=== PATIENT | male | born 1940 | race African-American/Black ===

== ENCOUNTER → 2016-06-12 | Outpatient (CLI) | payer MEDICARE ==
[2016-06-12 13:24] LABS: HEMATOCRIT 36.2 % (37.9-51.0); HEMOGLOBIN 11.6 g/dL (13.5-17.0); HGB HCT DIFFERENCE -1.4; MEAN CORPUSCULAR HGB CONC 32.1 g/dL (32.0-36.0); MEAN CORPUSCULAR VOLUME 93 fl (80-97); RED BLOOD COUNT 3.87 10^6/uL (4.35-5.55); RED CELL DISTRIBUTION WIDTH 14.9 % (11.5-14.0); WHITE BLOOD COUNT 4.4 10^3/uL (4.0-10.5)
[2016-06-12 13:30] LABS: APPEARANCE,URINE CLEAR; BILIRUBIN,URINE NEGATIVE (NEGATIVE); GLUCOSE, URINE NEGATIVE (NEGATIVE); KETONES,URINE NEGATIVE (NEGATIVE); LEUKOCYTE ESTERASE,URINE NEGATIVE (NEGATIVE); NITRITE,URINE NEGATIVE (NEGATIVE); PROTEIN,URINE 30 mg/dL (NEGATIVE); URINE SPECIFIC GRAVITY 1.015; UROBILINOGEN,URINE NEGATIVE mg/dL (<2.0)
[2016-06-12 13:53] LABS: ANION GAP 12 (5-19); BLOOD UREA NITROGEN 30 mg/dL (7-20); CALCIUM 9.2 mg/dL (8.4-10.2); CARBON DIOXIDE 22 mmol/L (22-30); CHLORIDE 111 mmol/L (98-107); CREATININE RESULT 1.47 mg/dL (0.52-1.25); GLUCOSE 191 mg/dL (75-110); POTASSIUM 4.2 mmol/L (3.6-5.0); SODIUM 144.9 mmol/L (137-145)
== END ==
LOC: OD 12:01
PROVIDERS: ATTEND Internal Medicine Nephrology
DX: I12.9 Hypertensive chronic kidney disease with stage 1 through stage 4 chronic kidney disease, or unspecified chronic kidney disease (principal); N18.3 Chronic kidney disease, stage 3 (moderate); E11.9 Type 2 diabetes mellitus without complications; D64.1 Secondary sideroblastic anemia due to disease
CPT/HCPCS: 36415; 80048; 81001; 85027

== ENCOUNTER 2016-08-11 09:43 | Emergency (ER) | payer OTHER, MEDICARE ==
[2016-08-11] MEDS ORDERED: OXYCODONE-ACETAMINOPHEN 5-325 MG TABLET PO ONE (10:05)
[2016-08-11] MEDS ORDERED: ONDANSETRON 4 MG TAB.RAPDIS PO ONE (10:05)
--- NOTE | 2016-08-11 10:05 | ER Document Report ---
ED GI/ - General Mode of Arrival: Ambulatory Information source: Patient TRAVEL OUTSIDE OF THE [place] IN LAST 30 DAYS: No - HPI Patient complains to provider of: Abdominal pain Onset: Other - see HPI note Similar symptoms previously: No Recently seen / treated by doctor: No <NIC PEREZ - Last Filed: 08/11/16 11:59> <LINDSAY MOORE - Last Filed: 08/11/16 12:02> - General Chief Complaint: Abdominal Pain Stated Complaint: PAIN IN SIDE Notes: Patient is a 75-year-old male presenting to the emergency department for right- sided abdominal pain. Patient states that he woke up yesterday with this pain and it has been waxing and waning ever since. Patient states he feels like it radiates into his back sometimes. Patient states that he was sent over from the [place] [facility] this morning. Patient states that he has some dysuria, but it is chronic due to a large prostate. Patient still has his gallbladder and his appendix. Patient states she has a cough which also may be chronic. Patient states his diet does not affect his abdominal pain. Patient denies any nausea, vomiting or diarrhea. Patient's primary care physician is Dr. Fitzpatrick. Patient has a history diabetes mellitus and hypertension. Patient states that he drove here, but that he can have a family member or friend, became up if we give him certain medications that prohibit him from driving. Patient has no known allergies. (NIC PEREZ) - Related Data Allergies/Adverse Reactions: No Known Allergies Allergy (Unverified 08/11/16 09:47) Past Medical History - General Information source: Patient - Social History Smoking Status: Unknown if Ever Smoked Family History: None Patient has suicidal ideation: No Patient has homicidal ideation: No - Past Medical History Cardiac Medical History: Reports: Hx Hypercholesterolemia, Hx Hypertension Pulmonary Medical History: Reports: Hx Asthma Neurological Medical History: Reports: Hx Seizures - Pediatric GI Medical History: Reports: Hx Hiatal Hernia Musculoskeltal Medical History: Reports Hx Arthritis Psychiatric Medical History: Reports: Hx Depression Past Surgical History: Reports: Hx Bowel Surgery - hernia repair - Immunizations Hx Diphtheria, Pertussis, Tetanus Vaccination: Yes Hx Pneumococcal Vaccination: 01/14/11 <NIC PEREZ - Last Filed: 08/11/16 11:59> Review of Systems - Review of Systems Constitutional: No symptoms reported EENT: No symptoms reported Cardiovascular: No symptoms reported Respiratory: See HPI, Cough Gastrointestinal: See HPI, Abdominal pain. denies: Diarrhea, Nausea, Vomiting Genitourinary: See HPI, Dysuria Male Genitourinary: No symptoms reported Musculoskeletal: No symptoms reported Skin: No symptoms reported Hematologic/Lymphatic: No symptoms reported Neurological/Psychological: No symptoms reported -: Yes All other systems reviewed and negative <NIC PEREZ - Last Filed: 08/11/16 11:59> Physical Exam - Vital signs Interpretation: Normal - General General appearance: Appears well, Alert In distress: Mild - HEENT Head: Normocephalic, Atraumatic Eyes: Normal Pupils: PERRL Mucous membranes: Moist - Respiratory Respiratory status: No respiratory distress Chest status: Nontender Breath sounds: Normal Chest palpation: Normal - Cardiovascular Rhythm: Regular Heart sounds: Normal auscultation Murmur: No - Abdominal Inspection: Normal Distension: No distension Tenderness: Tender - Right upper quadrant pain with inspiratory pause Organomegaly: No organomegaly - Back Back: Normal, Nontender - Extremities General upper extremity: Normal inspection, Normal ROM, Normal strength General lower extremity: Normal inspection, Normal ROM, Normal strength - Neurological Neuro grossly intact: Yes Cognition: Normal Orientation: AAOx4 [place] Coma Scale Eye Opening: Spontaneous [place] Coma Scale Verbal: Oriented [place] Coma Scale Motor: Obeys Commands [place] Coma Scale Total: 15 Speech: Normal Sensory: Normal - Psychological Associated symptoms: Normal affect, Normal mood - Skin Skin Temperature: Warm Skin Moisture: Dry <NIC PEREZ - Last Filed: 08/11/16 11:59> Course - Laboratory Result Diagrams: 08/11/16 10:17 08/11/16 10:17 <NIC PEREZ - Last Filed: 08/11/16 11:59> - Laboratory Result Diagrams: 08/11/16 10:17 08/11/16 10:17 <LINDSAY MOORE - Last Filed: 08/11/16 12:02> - Re-evaluation Re-evalutation: 08/11/16 10:06 Patient presents emergency department with a chief complaint of right upper quadrant pain that started yesterday and has been intermittent ever since. He called the [facility] told to come here for evaluation. He denies any nausea vomiting diarrhea fevers chills or change in appetite. He said the pain will occasionally go into his back area denies any fevers chills cough upper restrain illness shortness of breath chest pain or pressure. He says he hasn't a large prostate but hasn't had any new problems with burning with urination or blood in the urine. He denies any lower abdominal tenderness testicular tenderness. On exam he is well-appearing nontoxic in no acute distress afebrile with stable vital signs. He's got right upper quadrant abdominal tenderness with inspiratory pause. no acute guarding rebound rigidity. going to get labs, gallbladder ultrasound, pain treated and nausea control further assessment and evaluation 08/11/16 10:14 08/11/16 11:56 Patient reassessed at bedside pain is resolved in the right upper quadrant serial abdominal examinations no tenderness guarding rebound rigidity no right lower quadrant or lower abdominal pain with palpation normal white count elevation negative acute labs ultrasound shows a renal cyst which I talked him about is not Causing any discomfort. I gave him the option to go ahead and do a IV and oral CT scan right now he says that he wants to go home without that right now talked to her about the renal insufficiency and the contrast given an option to do that or to follow primary care physician on Sunday. He wants to go home he has pain medication home he wants to take that says he doesn't need any additional nausea medication and follow up with his primary care physician in 12 -24 hours. Told him to return immediately for increasing worsening or new symptoms. No acute clinical concerns at this point for aneurysm dissection or acute appendicitis although detailed discussion on immediate reasons for ED return sooner If he is unable to get an appointment with his doctor in 12-24 hours he is to return to the emergency department in 12-24 hours for recheck reevaluation and reassessment sooner for increasing symptoms an erythematous discharge instructions. 08/11/16 11:58 (LINDSAY MOORE) - Vital Signs Vital signs: Temp Pulse Resp BP Pulse Ox 70 18 112/66 93 08/11/16 09:47 08/11/16 09:47 08/11/16 09:47 08/11/16 09:47 - Laboratory Laboratory results interpreted by me: 08/11/16 08/11/16 08/11/16 10:17 10:17 10:17 RBC 4.26 L Hgb 13.0 L Eosinophils % 8.1 H Sodium 145.6 H BUN 23 H Creatinine 1.35 H Est GFR (Non-Af Amer) 52 L Urine Ascorbic Acid 40 H Discharge <NIC PEREZ - Last Filed: 08/11/16 11:59> <LINDSAY MOORE - Last Filed: 08/11/16 12:02> - Discharge Clinical Impression: abdominal pain Condition: Stable Disposition: HOME, SELF-CARE Instructions: Abdominal Pain ([facility]) Additional Instructions: Abdominal Pain There are many causes of abdominal pain. Pain can mean a serious problem requiring surgery (such as appendicitis). It can also be an innocent problem that goes away on its own (such as a viral infection). Often, time must pass to determine the cause of pain. The physician does not feel that hospitalization is necessary, at present. Things may change within the next 24 hours. Call the doctor or come back for re- examination if any problems occur, such as: (1) Pain that becomes more severe, steady, or becomes concentrated in one specific area. Also, pain that is more severe with movement or coughing. (2) Vomiting that persists or becomes more frequent. (3) Blood in the vomitus, urine, or bowel movements. Blood in the stool may have a tarry or black appearance. (4) Shaking chills or fever greater than 100 degrees F. (5) The abdomen becomes more distended or swollen. (6) Bowel movements cease. (7) Failure to improve as expected. Follow-up with your doctor for recheck and reevaluation in 12-24 hours if you are unable to follow up or symptoms worsen return immediately to the emergency department for recheck and reevaluation in 12-24 hours. Scribe Attestation: 08/11/16 10:07 I personally performed the services described in the documentation reviewed the documentation recorded by my scribe in my presence and it accurately and completely records my words and actions (LINDSAY MOORE) Scribe Documentation - Scribe Written by Caleb:: Nic Perez 08/11/16 10:20 acting as scribe for :: Wilfredo <NIC PEREZ - Last Filed: 08/11/16 11:59>
[2016-08-11 10:57] LABS: ABSOLUTE BASOPHILS # (AUTO) 0.1 10^3/uL (0.0-0.2); ABSOLUTE EOSINOPHILS # (AUTO) 0.4 10^3/uL (0.0-0.6); ABSOLUTE LYMPHOCYTES (AUTO) 1.7 10^3/uL (0.5-4.7); ABSOLUTE MONOCYTES (AUTO) 0.6 10^3/uL (0.1-1.4); ABSOLUTE NEUT (AUTO) 2.7 10^3/uL (1.7-8.2); BASOPHILS % (AUTO) 0.9 % (0-2); EOSINOPHILS % (AUTO) 8.1 % (0-6); HEMATOCRIT 40.1 % (37.9-51.0); HGB HCT DIFFERENCE -1.1; LYMPHOCYTES % (AUTO) 30.8 % (13-45); MEAN CORPUSCULAR HEMOGLOBIN 30.6 pg (27.0-33.4); MEAN CORPUSCULAR HGB CONC 32.5 g/dL (32.0-36.0); MEAN CORPUSCULAR VOLUME 94 fl (80-97); MONOCYTES % (AUTO) 11.6 % (3-13); RED BLOOD COUNT 4.26 10^6/uL (4.35-5.55); RED CELL DISTRIBUTION WIDTH 13.9 % (11.5-14.0); SEGMENTED NEUTROPHILS % (AUTO) 48.6 % (42-78); WHITE BLOOD COUNT 5.5 10^3/uL (4.0-10.5)
[2016-08-11 11:12] LABS: ALANINE AMINOTRANSFERASE 23 U/L (21-72); ALBUMIN 4.4 g/dL (3.5-5.0); ALKALINE PHOSPHATASE 74 U/L (38-126); ANION GAP 15 (5-19); ASPARTATE AMINO TRANSFERASE 25 U/L (17-59); BILIRUBIN,DIRECT 0.3 mg/dL (0.0-0.4); BLOOD UREA NITROGEN 23 mg/dL (7-20); CALCIUM 9.5 mg/dL (8.4-10.2); CARBON DIOXIDE 26 mmol/L (22-30); CHLORIDE 105 mmol/L (98-107); CREATININE RESULT 1.35 mg/dL (0.52-1.25); GLUCOSE 104 mg/dL (75-110); POTASSIUM 4.7 mmol/L (3.6-5.0); SODIUM 145.6 mmol/L (137-145); TOTAL PROTEIN 7.7 g/dL (6.3-8.2)
[2016-08-11 11:17] LABS: APPEARANCE,URINE CLEAR; BILIRUBIN,URINE NEGATIVE (NEGATIVE); GLUCOSE, URINE NEGATIVE (NEGATIVE); KETONES,URINE NEGATIVE (NEGATIVE); LEUKOCYTE ESTERASE,URINE NEGATIVE (NEGATIVE); NITRITE,URINE NEGATIVE (NEGATIVE); PROTEIN,URINE NEGATIVE (NEGATIVE); URINE SPECIFIC GRAVITY 1.011; UROBILINOGEN,URINE NEGATIVE mg/dL (<2.0)
[2016-08-11 12:17] VITALS: BP 119/66
== END 2016-08-11 12:00 | disposition home or self-care (01) ==
LOC: ER 09:43
DX: R10.11 Right upper quadrant pain (principal); N20.0 Calculus of kidney; N40.0 Benign prostatic hyperplasia without lower urinary tract symptoms; R05 Cough; I10 Essential (primary) hypertension; E11.9 Type 2 diabetes mellitus without complications; J45.909 Unspecified asthma, uncomplicated
CPT/HCPCS: 99284; 36415; 83690; 85025; 80053; 81001; 76705; S0119

== ENCOUNTER → 2016-09-18 | Outpatient (CLI) | payer MEDICARE, OTHER ==
--- NOTE | 2016-09-18 14:33 | RADIOLOGY REPORT (SQ) ---
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 Patient was unab le to get IV contrast today because of renal insufficiency CONTRAST TYPE AND DOSE: No IV contrast RENAL FUNCTION: Creatinine 1.9 next LIMITATIONS: None. FINDINGS: LIVER: Normal size. No masses or dilated ducts. CBD normal. SPLEEN: Normal size. No focal lesions. PANCREAS: No masses. No adjacent inflammation or peripancreatic fluid collections. Pancreatic duct no t dilated. GALLBLADDER: No masses. No stones. No gallbladder wall thickening or pericholecystic fluid. ADRENAL GLANDS: No significant masses or asymmetry. RIGHT KIDNEY AND URETER: In the right posterior mid pole kidney, a dumbbell-shaped well-circumscribed cystic structure is present with a single thin septation measuring 4.2 x 2.6 cm in size. This is sl ightly hyperintense to renal parenchyma on T1 weighted images and dark on T2 images suggesting that t his represents a hemorrhagic cyst. This best shown some interval growth since 2011 where it measured about 2.7 x 1.4 cm size. This most likely is a hemorrhagic cyst with a single septation. LEFT KIDNEY AND URETER: No masses. No hydronephrosis. AORTA AND VESSELS: No aneurysm. No dissection. Renal arteries, SMA, celiac without stenosis. RETROPERITONEUM: No retroperitoneal adenopathy, hemorrhage or masses. BOWEL: There are scattered colonic diverticuli evident along the hepatic flexure colon ABDOMINAL WALL AND PERITONEUM: No hernias. No free fluid. BONES: No acute or significant findings. OTHER: No other significant finding. 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 TECHNICAL DOCUMENTATION: JOB ID: [id number]- All Rights Reserved
== END ==
LOC: RAD 10:04
PROVIDERS: ATTEND Urology
DX: D41.01 Neoplasm of uncertain behavior of right kidney (principal)
CPT/HCPCS: 74181; 82565

== ENCOUNTER → 2016-11-13 | Outpatient (CLI) | payer MEDICARE ==
[2016-11-13 12:54] LABS: HEMATOCRIT 36.6 % (37.9-51.0); HEMOGLOBIN 11.8 g/dL (13.5-17.0); HGB HCT DIFFERENCE -1.2; MEAN CORPUSCULAR HEMOGLOBIN 29.6 pg (27.0-33.4); MEAN CORPUSCULAR HGB CONC 32.3 g/dL (32.0-36.0); MEAN CORPUSCULAR VOLUME 92 fl (80-97); RED CELL DISTRIBUTION WIDTH 14.3 % (11.5-14.0); WHITE BLOOD COUNT 5.1 10^3/uL (4.0-10.5)
[2016-11-13 13:30] LABS: ANION GAP 12 (5-19); BLOOD UREA NITROGEN 21 mg/dL (7-20); CARBON DIOXIDE 27 mmol/L (22-30); CHLORIDE 105 mmol/L (98-107); CREATININE RESULT 1.38 mg/dL (0.52-1.25); GLUCOSE 115 mg/dL (75-110); POTASSIUM 4.5 mmol/L (3.6-5.0); SODIUM 143.9 mmol/L (137-145)
[2016-11-13 14:55] LABS: APPEARANCE,URINE CLEAR; BILIRUBIN,URINE NEGATIVE (NEGATIVE); GLUCOSE, URINE NEGATIVE (NEGATIVE); KETONES,URINE NEGATIVE (NEGATIVE); LEUKOCYTE ESTERASE,URINE NEGATIVE (NEGATIVE); NITRITE,URINE NEGATIVE (NEGATIVE); PROTEIN,URINE 30 mg/dL (NEGATIVE); URINE SPECIFIC GRAVITY 1.025
[2016-11-15 11:40] LABS: CREATININE URINE 284.5 mg/dL (Not Estab.); MICROALBUMIN URINE 24.3 ug/mL (Not Estab.)
== END ==
LOC: OD 11:54
PROVIDERS: ATTEND Internal Medicine Nephrology
DX: R80.9 Proteinuria, unspecified (principal); E11.9 Type 2 diabetes mellitus without complications; N18.3 Chronic kidney disease, stage 3 (moderate)
CPT/HCPCS: 36415; 80048; 81001; 82043; 82570; 85027

== ENCOUNTER → 2016-12-15 | Outpatient (CLI) | payer MEDICARE ==
--- NOTE | 2016-12-15 11:08 | RADIOLOGY REPORT (SQ) ---
EXAM DESCRIPTION: CHEST PA/LATERAL COMPLETED DATE/TIME: 12/15/2016 10:12 am REASON FOR STUDY: COPD COMPARISON: 01/30/2016 EXAM PARAMETERS: NUMBER OF VIEWS: two views TECHNIQUE: Digital Frontal and Lateral radiographic views of the chest acquired. RADIATION DOSE: NA LIMITATIONS: none FINDINGS: LUNGS AND PLEURA: No opacities, masses or pneumothorax. No pleural effusion. MEDIASTINUM AND HILAR STRUCTURES: No masses or contour abnormalities. HEART AND VASCULAR STRUCTURES: Heart normal size. No evidence for failure. BONES: No acute findings. HARDWARE: None in the chest. OTHER: No other significant finding. IMPRESSION: NO SIGNIFICANT RADIOGRAPHIC FINDING IN THE CHEST. TECHNICAL DOCUMENTATION: JOB ID: [id number] [employer]- All Rights Reserved
== END ==
LOC: OD 09:44
PROVIDERS: ATTEND Internal Medicine
DX: J44.9 Chronic obstructive pulmonary disease, unspecified (principal)
CPT/HCPCS: 71020